=== PATIENT | female | born 1995 | race African-American/Black ===

== ENCOUNTER 2021-07-10 13:49 | Outpatient (CLI) | payer BC, SELFPAY ==
[2021-07-12 09:56] LABS: DHEA-Sulfate 97 mcg/dL (18-391)
[2021-07-12 13:04] LABS: Prolactin 25.4 ng/mL (***)
[2021-07-13 10:22] LABS: Testosterone Total 39 ng/dL (2-45)
== END 2021-07-10 13:50 | disposition home or self-care (01) ==
LOC: ANHLAB 13:51
PROVIDERS: Visit Provider Obstetrics & Gynecology
DX: L68.0 Hirsutism (principal)
CPT/HCPCS: 36415; 82157; 82627; 83498; 84146; 84403; 84443